=== PATIENT | male | born 1990 | race Asian ===

== ENCOUNTER 2021-12-15 06:33 | Day surgery (SDC) | payer OTHER ==
[~2021-12-15] VITALS: Ht 162.6 cm; Wt 79.5 kg
[~2021-12-15 06:33] MED LIST: TYLENOL325 M1 PO
--- NOTE | 2021-12-15 08:39 | NUR ---
12/15/21 0839 Emely Bustos 0758 PT ARRIVED IN PACU SLEEPY WITH NO C/O'S. ABD SOFT. 0815 PT AWAKENS WITH HICCUPS. 0820 TAKING SIPS OF WATER. PT STATES "I HAD HICCUPS LAST TIME I HAD A COLONOSCOPY." 0830 GETTING DRESSED WITH STAND BY ASSIST. 0835 DC INSTRUCTIONS GIVEN. ALL QUESTIONS ANSWERED.
--- NOTE | 2021-12-15 08:55 | OR ---
[facility] [address] [place], [place] [address] Signed DATE OF OPERATION: 12/15/2021 SURGEON: Codie Taylor MD PREOPERATIVE DIAGNOSES: 1. Mother with colon cancer in her late 30s or early 40s. 2. Personal history of colonic polyps in September 2020. 3. Laparoscopic sigmoid resection in October 2020 for colon cancer. POSTOPERATIVE DIAGNOSES: 1. 3 mm polyp at hepatic flexure. 2. Colorectal anastomosis at 10 cm with granulation tissue. PROCEDURE: Colonoscopy with hot biopsy. ESTIMATED BLOOD LOSS: None. INDICATIONS: Raphael is a 31-year-old young man, who comes to us from the [place], [place] area. His mother had colon cancer in her late 30s or early 40s. Raphael developed abdominal pain with rectal bleeding last year. He went to the [facility] in [place], [place]. He completed his colonoscopy in September 2020. Apparently, he had 17 colonic polyps removed and was diagnosed with colon cancer. He underwent his laparoscopic sigmoid colectomy in October [address] Shawnee Palm. This was through the [facility] in [place], [place]. He had been referred to his medical oncologist, Dr. Chase in [place], [place]. There was no need for chemotherapy. He has traveled up to [facility] to be with his brother in his recovery. He said he is hoping to get back down to [place] soon to complete his school and to regain his employment. He has no lower GI complaints. He had been through the [facility] through [place], [place]. He was asked to see me as a local general surgeon here in [place], [place] for followup colonoscopy. In the office, I gave him a pamphlet on colonoscopy as well as colorectal polyps and cancer. He understands the nature of the colonoscopy. There is risk including, but not limited to gas bloating, crampy abdominal pain, bleeding, perforation requiring surgery, and missed diagnosis. We also reviewed the written instructions for bowel prep line by line. He also recalls the need for IV conscious sedation. He said his brother could take him home afterwards. He had expressed understanding and wished to proceed. Electronically Signed By: COIDE TAYLOR MD 12/15/21 0855 PATIENT NAME: RAPHAEL AGUILAR OPERATIVE REPORT DATE OF : 86 REPORT #: [id number] PHYSICIAN: CODIE TAYLOR MD PCP: OTHER PCP REPORT IS CONFIDENTIAL AND NOT TO BE RELEASED WITHOUT AUTHORIZATION [facility] [address] [place], [place] [address] Signed PROCEDURE NOTE: Raphael was taken into our endoscopy suite and placed in the left lateral decubitus position. He was given a total of 7 mg of Versed and 125 mcg of fentanyl to cover the case. A digital rectal exam was performed and this was unremarkable. No external hemorrhoids. Excellent sphincter tone. No masses. The adult colonoscope was introduced and advanced quite readily into the cecum itself. His prep was quite excellent. We could easily see the appendiceal orifice and the ileocecal valve. The scope had been slowly withdrawn. We removed a tiny 3 mm polypoid lesion at the hepatic flexure. There was no diverticulosis. We could see his colorectal anastomosis right around 10 to 12 cm. He still has three haustral folds in the rectum. There were a few star on the one side and a little bit of granulation tissue. We went ahead and took several biopsies and then cauterized the rest of the granulation tissue. Again, we took pictures throughout for photodocumentation. The scope had been retroflexed in the rectum and we could see there was no evidence of any additional pathology above the anal canal. After this, the gas was suctioned out and the colonoscope removed. Raphael tolerated his procedure quite well. RECOMMENDATIONS: I will see Raphael back in my office in 7 to 14 days to review his results. I explained Raphael he should consider a colonoscopy every year for three years. If that is negative, he could wait three years, have another colonoscopy and if that is negative, it would be every five years after that. Codie Taylor MD ALB/MODL /[id number] cc: Cdoie Taylor MD [facility] [place] Electronically Signed By: CODIE TAYLOR MD 12/15/21 0855 PATIENT NAME: RAPHAEL AGUILAR OPERATIVE REPORT DATE OF : 86 REPORT #: [id number] PHYSICIAN: CODIE TAYLOR MD PCP: OTHER PCP REPORT IS CONFIDENTIAL AND NOT TO BE RELEASED WITHOUT AUTHORIZATION [address] [address] Signed Copies: CODIE TAYLOR MD ~ Electronically Signed By: CODIE TAYLOR MD 12/15/21 0855 PATIENT NAME: RAPHAEL AGUILAR OPERATIVE REPORT DATE OF : 86 REPORT #: [id number] PHYSICIAN: CODIE TAYLOR MD PCP: OTHER PCP REPORT IS CONFIDENTIAL AND NOT TO BE RELEASED WITHOUT AUTHORIZATION
--- NOTE | 2021-12-15 10:00 | NUR ---
PT ALERT, ORIENTED AND HAS HAD SCOPES BEFORE. ALL QUESTIONS ASKED ANSWERED. PT WILL HAVE [facility] PICKUP FOLLOWING DC. GAVE BLESSING, WILL FOLLOW
--- NOTE | 2021-12-21 08:51 | PATH ---
[facility] [address] [facility] [place] [address] Signed SPECIMEN(S): A HEPATIC FLEXURE POLYP SPECIMEN(S): B COLON BIOPSY "ANASTOMOSIS" SPECIMEN SOURCE: A. HEPATIC FLEXURE POLYP B. COLON BIOPSY "ANASTOMOSIS" CLINICAL HISTORY: History of colon CA 2020. Colonoscopy. FINAL PATHOLOGIC DIAGNOSIS: A. Colon, hepatic flexure, polyp, polypectomy: - Cauterized colonic mucosa with focal subtle hyperplastic changes, see Comment. - Negative for malignancy. B. Colon, anastomosis, biopsy: - Fragments of colonic mucosa with active inflammation, granulation tissue formation, hyperplastic mucosal changes, and focal granulomatous reaction. - No evidence of malignancy. COMMENT: Regarding specimen A: Multiple additional deeper levels were examined. The cautery artifact precludes definitive histologic classification. Focal low-grade dysplasia cannot be entirely excluded. Regarding specimen B: The findings are favored to be reactive changes secondary to colon surgery. Immunohistochemical stains (with appropriately staining controls) were performed. CD68 highlights histiocytes of the granuloma. Pancytokeratin (AE1/AE3) is negative for infiltrative carcinoma. NAL:cml:C2NR MICROSCOPIC EXAMINATION: Histologic sections of all submitted blocks are examined by light microscopy. These findings, together with the gross examination, support the pathologic diagnosis. Regarding specimen B: A CD68 immunohistochemical stain (with appropriately staining controls) highlights the histiocytes within the focus of granulomatous inflammation. GROSS DESCRIPTION: Two specimens are received in two containers, labeled "IT." PATIENT NAME: SOFI AGUILARJasper Serrano PATHOLOGY DATE OF : 86 REPORT #: [id number] PHYSICIAN: CHLOE SAWANT PCP: OTHER PCP REPORT IS CONFIDENTIAL AND NOT TO BE RELEASED WITHOUT AUTHORIZATION [facility] [address] [place], [place] [address] Signed A. The specimen, labeled "IT, 1," and designated on the requisition "hepatic flexure polyp," is received in formalin and consists of one haddad soft tissue fragment that measures 0.3 cm in greatest dimension. The specimen is entirely submitted in cassette (A1). B. The specimen, labeled "IT, colorectal anastomosis," and designated on the requisition "colon biopsy at 10 cm, and anastomosis," is received in formalin and consists of multiple haddad soft tissue fragments that measure 0.3 cm in greatest dimension as well as a 0.7 x 0.2 cm metal fragment. The specimen is entirely submitted in cassette (B1). Note: Metal fragment is retained with original fluid and container. AT (under the direct supervision of a pathologist) The Gross Description was prepared using a voice recognition system. The report was reviewed for accuracy; however, sound-alike word errors, addition and/or deletions may occur. If there is any question about this report, please contact Client Services. ADDITIONAL NOTES: Immunohistochemical and/or in situ hybridization studies were performed on this case with the appropriate positive controls that react as expected. This test was developed and its performance characteristics determined by [facility]. It has not been cleared or approved by the U.S. Food and Drug Administration. The FDA has determined that such clearance or approval is not necessary. This test is used for clinical purposes. It should not be regarded as investigational or for research. [facility] is certified under the Clinical Laboratory Improvement Amendments of 1988 (CLIA) as qualified to perform high complexity clinical laboratory testing. This assay has not been validated for specimens that have been decalcified. The technical component was performed by [facility] [address] (Design Quality Engineer: Alejandra Krishnan MD; CLIA# [id number]). Professional interpretation was performed by [facility], [address] [place] [address] (CLIA# [id number]). PERFORMING LABORATORY: The technical [place] [address] (Design Quality Engineer: Alejandra Krishnan MD; CLIA# [id number]). [facility] PATIENT NAME: BESS AGUILAR PATHOLOGY DATE OF : 86 REPORT #: [id number] PHYSICIAN: CHLOE SAWANT PCP: OTHER PCP REPORT IS CONFIDENTIAL AND NOT TO BE RELEASED WITHOUT AUTHORIZATION [facility] [address] [place] [address] Signed [place] [address] (CLIA# [id number]). Diagnostician: Iliana Choe MD Pathologist Electronically Signed 12/21/2021 Copies: ~ PATIENT NAME: BESS AGUILAR PATHOLOGY DATE OF : 86 REPORT #: [id number] PHYSICIAN: CHLOE PATHOLOGY PCP: OTHER PCP REPORT IS CONFIDENTIAL AND NOT TO BE RELEASED WITHOUT AUTHORIZATION
== END 2021-12-15 08:43 | disposition home or self-care (01) ==
LOC: DS 06:33 → OPS 06:33 → DS 09:45
PROVIDERS: ATTEND Colon & Rectal Surgery
PROC: 0DBE8ZZ Excision of Large Intestine, Via Natural or Artificial Opening Endoscopic (ICD-10-PCS; 2021-12-15)
PROC: 0DBL8ZZ Excision of Transverse Colon, Via Natural or Artificial Opening Endoscopic (ICD-10-PCS; principal; 2021-12-15 07:30)
DX: K63.5 Polyp of colon (principal); K52.9 Noninfective gastroenteritis and colitis, unspecified; Z85.038 Personal history of other malignant neoplasm of large intestine
CPT/HCPCS: 88305; 88341; 88342; 99153; G0500; J2250; J3010; J7121